=== PATIENT | female | born 1970 | race American Indian/Alaskan Native ===

== ENCOUNTER 2017-04-17 08:34 | Emergency (ER) | payer SELFPAY ==
[2017-04-17 08:49] VITALS: BP 154/94
[2017-04-17] MEDS ORDERED: MOTRIN PO ONE (10:10)
--- NOTE | 2017-04-17 10:25 | Emergency Department Report ---
HPI - General Chief Complaint: Sore Throat Time Seen by Provider: 04/17/17 10:09 - HPI HPI: 7-year-old -[place] female comes in for complaint of sore throat that started yesterday. Patient reports that she has difficulty swallowing has a little cough headache and low-grade fever. She reports that she is trying to drink. She has a past medical history acid reflux and bronchial asthma. She's had a tubal ligation 21 years ago. And she is in menopause. ED Past Medical Hx - Past Medical History Previous Medical History?: Yes Hx GERD: Yes Hx Asthma: Yes Additional medical history: heart murmur - Surgical History Past Surgical History?: Yes Additional Surgical History: tubaligation - Social History Smoking Status: Current Every Day Smoker Substance Use Type: Alcohol, Marijuana, Non Opiate Pain, Prescribed - Medications Home Medications: Home Medications Medication Instructions Recorded Confirmed Last Taken Type Fluconazole [Diflucan] 200 mg PO QDAY 1 Days #1 tablet 04/17/17 Unknown Rx ED Review of Systems ROS: Stated complaint: STREP THROAT Other details as noted in HPI Constitutional: fever Eyes: denies: eye pain, eye discharge, vision change ENT: throat pain Respiratory: cough Cardiovascular: denies: chest pain, palpitations Endocrine: no symptoms reported Gastrointestinal: denies: abdominal pain, nausea, diarrhea Genitourinary: as per HPI Musculoskeletal: denies: back pain, joint swelling, arthralgia Skin: denies: rash, lesions Neurological: headache. denies: weakness, paresthesias Physical Exam - Physical Exam Vital Signs: Vital Signs 04/17/17 08:45 Temperature 100.8 F H Pulse Rate 99 H Respiratory 20 Rate Blood Pressure 154/94 O2 Sat by Pulse 99 Oximetry Physical Exam: GENERAL: Alert and oriented x3, no apparent distress, Normal Gait, atraumatic. HEAD: Head is normocephalic and a-traumatic. EYES: Extra ocular muscles are intact. Pupils are equal, round, and reactive to light and accommodation. EARS: symetrical, atraumatic, non tender, ear canal clear and moderate cerumen, tympanic membrance non inflamed. gross auditory nml bilaterally. NOSE: Nose symetrical, Nontender,Nares appeared normal. MOUTH:Mouth is well hydrated and without lesions. Tonsils erythematous, swollen and exudate on both tonsils., Uvula midline, Tongue not elevated. Mucous membranes are moist. Posterior pharynx clear, no exudate or lesions. Patent airways. NECK: Supple. Non edematous, No carotid bruits. No lymphadenopathy or thyromegaly. LUNGS: Symetrical with respiration, No wheezing, no rales or crackles, CTAB. HEART: S1, S2 present, regular rate and rhythm without murmur, no rubs, no gallops. EXTREMITIES/MUSCULOSKELETAL: No cyanosis, clubbing, rash, lesions or edema. Full ROM bilaterally. UE/LE Pulses 2+ bilaterally. LE and UE 5+ strength bilaterally NEUROLOGIC: No focal Deficit, Cranial nerves II through XII are grossly intact. No loss of sensation, No facial droop, PSYCHIATRIC: Mood is congruent with affect, denies suicidal or homicidal ideations. SKIN: Warm and dry, No lesions, No ulceration or induration present ED Course Vital Signs 04/17/17 08:45 Temperature 100.8 F H Pulse Rate 99 H Respiratory 20 Rate Blood Pressure 154/94 O2 Sat by Pulse 99 Oximetry ED Medical Decision Making - Medical Decision Making Patient has been evaluated by this provider fast track. Discussed the patient we'll send a rapid strep. If positive we'll treat her with Bicillin. Given patient ibuprofen 800 mg by mouth now. Patient verbalized understanding. Group strep a positive we'll treat with Bicillin 1.2 million IM. Prescription for ibuprofen 800 mg 3 times a day when necessary for pain. Patient is requesting Diflucan for yeast infection after she gets injection. Critical care attestation.: If time is entered above; I have spent that time in minutes in the direct care of this critically ill patient, excluding procedure time. ED Disposition Clinical Impression: Strep throat Disposition: DC-01 TO HOME OR SELFCARE Is pt being admited?: No Does the pt Need Aspirin: No Condition: Stable Instructions: Strep Throat (ED) Additional Instructions: Take ibuprofen as needed. Follow-up to her primary care provider within 3-5 days for further evaluation. Prescriptions: Fluconazole [Diflucan] 200 mg PO QDAY 1 Days #1 tablet Referrals: PRIMARY CARE, [Primary Care Provider] - 3-5 Days
[2017-04-17] MEDS ORDERED: BICILLIN L-A IM ONE (11:18)
== END 2017-04-17 11:34 | disposition home or self-care (01) ==
LOC: ED 08:34
DX: J02.0 Streptococcal pharyngitis (principal); K21.9 Gastro-esophageal reflux disease without esophagitis; F17.200 Nicotine dependence, unspecified, uncomplicated; F12.10 Cannabis abuse, uncomplicated
CPT/HCPCS: 87430; 96372; 99283; J0561